=== PATIENT | female | born 1955 | race Caucasian/White ===

== ENCOUNTER → 2018-01-18 | Outpatient (CLI) | payer BC ==
--- NOTE | 2018-01-23 09:41 | MM ---
Reason for exam: screening (asymptomatic). Last mammogram was performed 2 years and 1 month ago. History: Patient is postmenopausal. Physical Findings: A clinical breast exam by your physician is recommended on an annual basis and results should be correlated with mammographic findings. MG Screening Mammo w CAD Bilateral CC and MLO view(s) were taken. Prior study comparison: December 25, 2015, bilateral MG screening mammo w CAD. December 24, 2013, bilateral MG screening mammo w CAD. There are scattered fibroglandular densities. No suspicious abnormality. No significant changes when compared with prior studies. ASSESSMENT: Negative, BI-RAD 1 RECOMMENDATION: Routine screening mammogram of both breasts in 1 year.
== END | disposition home or self-care (01) ==
LOC: RADMAMWWP 09:53
PROVIDERS: ATTEND Obstetrics & Gynecology
DX: Z12.31 Encounter for screening mammogram for malignant neoplasm of breast (principal)
CPT/HCPCS: 77067

== ENCOUNTER → 2018-07-23 | Outpatient (CLI) | payer BC ==
[2018-07-23 17:16] LABS: Immunoglobulin E 45.1 IU/mL (0.00-114.00)
[2018-07-24 12:33] LABS: Immunoglobulin M 73.8 mg/dL (40.0-280.0)
== END ==
LOC: LABWHC1 11:14
PROVIDERS: ATTEND Internal Medicine Critical Care Medicine
DX: J45.909 Unspecified asthma, uncomplicated (principal); J06.9 Acute upper respiratory infection, unspecified; J45.41 Moderate persistent asthma with (acute) exacerbation; J20.9 Acute bronchitis, unspecified
CPT/HCPCS: 36415; 82784; 82785

== ENCOUNTER → 2018-07-26 | Outpatient (CLI) | payer BC ==
[2018-07-26 10:48] LABS: Basophils % (A) 0 %; Eosinophils # (A) 0.1 k/uL (0-0.7); Eosinophils % (A) 1 %; HCT 44.2 % (34.0-46.0); HGB 13.7 gm/dL (11.4-16.0); Lymphocytes # (A) 1.2 k/uL (1.0-4.8); Lymphocytes % (A) 15 %; MCH 27.1 pg (25.0-35.0); MCHC 31.1 g/dL (31.0-37.0); MCV 87.1 fL (80.0-100.0); Mean Platelet Volume 6.3; Monocytes # (A) 0.4 k/uL (0-1.0); Monocytes % (A) 5 %; Neutrophils % (A) 78 %; Platelet Count 235 k/uL (150-450); RBC 5.07 m/uL (3.80-5.40); RDW 13.2 % (11.5-15.5); WBC 7.7 k/uL (3.8-10.6)
[2018-07-26 11:25] LABS: Total Eosinophil Count 54 #EOS/uL (150-300)
== END | disposition home or self-care (01) ==
LOC: LABWHC1 10:18
PROVIDERS: ATTEND Internal Medicine
DX: J45.50 Severe persistent asthma, uncomplicated (principal)
CPT/HCPCS: 36415; 85008; 85025

== ENCOUNTER 2018-07-28 19:04 | Emergency (ER) | payer BC ==
[2018-07-28] MEDS ORDERED: SODIUM CHLORIDE 0.9% 500 ML 500 ML IV ONE (19:30)
--- NOTE | 2018-07-28 19:34 | ED ---
Altered Mental Status HPI <Rex Westfall - Last Filed: 07/28/18 22:20> - General Source: patient Mode of arrival: ambulatory Limitations: no limitations <Sonali Ellsworth - Last Filed: 07/28/18 22:24> - General Chief Complaint: Altered Mental Status Stated Complaint: confused Time Seen by Provider: 07/28/18 19:21 - History of Present Illness Initial Comments: 62-year-old female patient presents to the emergency department today for evaluation of altered mental status. Daughter is with patient and provides most of history. She states that she has been dealing with a respiratory infection for the last few weeks. She did see Dr. Vital and was prescribed Augmentin and a steroid, she completed these symptoms were not improved so she follow-up with her own public health veterinarian Dr. Hart who then started azithromycin and prednisone. She hasn't taken his medications the last couple of days and lung symptoms seems to be improving. Daughter reports that she spoke to her on the phone several times today, states that she seemed to be fine however with the last conversation this evening she was answering questions appropriately and being very quiet. States when she went to check on her she was told her pajamas which is unusual. States that she was confused, unable to complete sentences, and just wasn't acting herself. Patient states that she has been having headaches since starting the breathing treatments. States that she is having sharp pain behind the right ear. States that she has had "foggy" vision today. She denies any current chest pain, abdominal pain, nausea, or vomiting. Has had normal bowel movements. She denies any numbness or tingling to the extremities. Denies any weakness. Patient denies any recent rash, shortness breath, diarrhea, constipation, back pain, dizziness, hematuria, dysuria, urinary urgency, urinary frequency, headache, or any other complaints. (Sonali Ellsworth) - Related Data Home Medications Medication Instructions Recorded Confirmed Celecoxib [CeleBREX] 200 mg PO DAILY 05/11/16 05/11/16 Cholecalciferol [Vitamin D3] 1,000 unit PO DAILY 05/11/16 05/11/16 Famotidine [Pepcid AC] 10 mg PO BID 05/11/16 05/11/16 Fluticasone Nasal [place] [Flonase 1 spray EA NOSTRIL BID PRN 05/11/16 05/11/16 Nasal [place]] Montelukast [Singulair] 10 mg PO HS 05/11/16 05/11/16 Multivitamins, Thera [Multivitamin] 1 tab PO DAILY 05/11/16 05/11/16 Olmesartan Medoxomil [Benicar] 40 mg PO HS 05/11/16 05/11/16 Vitamin B Complex 1 cap PO DAILY 05/11/16 05/11/16 Allergies Allergy/AdvReac Type Severity Reaction Status Date / Time levofloxacin [From Levaquin] Allergy Swelling Verified 05/11/16 16:16 Review of Systems ROS Other: All systems not noted in ROS Statement are negative. <Rex Westfall - Last Filed: 07/28/18 22:20> ROS Other: All systems not noted in ROS Statement are negative. <Sonali Ellsworth - Last Filed: 07/28/18 22:24> ROS Statement: Those systems with pertinent positive or pertinent negative responses have been documented in the HPI. Past Medical History Past Medical History: Asthma, Hypertension History of Any Multi-Drug Resistant Organisms: None Reported Past Surgical History: Tubal Ligation Additional Past Surgical History / Comment(s): eye sx Past Psychological History: No Psychological Hx Reported Smoking Status: Former smoker Past Alcohol Use History: Occasional Past Drug Use History: None Reported <Sonali Ellsworth - Last Filed: 07/28/18 22:24> General Exam Limitations: no limitations General appearance: alert, in no apparent distress, other (Physical well- developed, well-nourished adult female patient in no acute distress. Vital signs upon presentation are temperature 98.5F, pulse 84, respirations 18, blood pressure 141/76, pulse ox 96% on room air.) Eye exam: Present: normal appearance, PERRL, EOMI. Absent: scleral icterus, conjunctival injection, periorbital swelling ENT exam: Present: normal exam, normal oropharynx, mucous membranes moist Respiratory exam: Present: normal lung sounds bilaterally. Absent: respiratory distress, wheezes, rales, rhonchi, stridor Cardiovascular Exam: Present: regular rate, normal rhythm, normal heart sounds. Absent: systolic murmur, diastolic murmur, rubs, gallop, clicks GI/Abdominal exam: Present: soft, normal bowel sounds. Absent: distended, tenderness, guarding, rebound, rigid Neurological exam: Present: alert, oriented X3, CN II-XII intact Expanded Speech: Present: fluid speech Cranial nerves: EOM's Intact: Normal, Tongue Deviation: Normal, Nystagmus: Normal, Facial Palsy with Forehead Movement: Normal Motor strength exam: RUE: 5, LUE: 5, RLE: 5, LLE: 5 Eye Response: (4) open spontaneously Motor Response: (6) obeys commands Verbal Response: (5) oriented [place] Total: 15 Psychiatric exam: Present: normal affect, normal mood Skin exam: Present: warm, dry, intact, normal color. Absent: rash <Sonali Ellsworth - Last Filed: 07/28/18 22:24> Vital Signs 07/28/18 07/28/18 07/28/18 19:07 19:20 19:40 Temperature 98.5 F Pulse Rate 84 80 84 Respiratory 18 18 16 Rate Blood Pressure 141/76 145/88 134/86 O2 Sat by Pulse 96 93 L 95 Oximetry 07/28/18 07/28/18 20:00 20:30 Temperature Pulse Rate 81 76 Respiratory 13 16 Rate Blood Pressure 134/86 132/83 O2 Sat by Pulse 95 94 L Oximetry Medical Decision Making - Lab Data Result diagrams: 07/28/18 20:03 07/28/18 20:03 <Rex Westfall - Last Filed: 07/28/18 22:20> - Lab Data Result diagrams: 07/28/18 20:03 07/28/18 20:03 - EKG Data -: EKG Interpreted by [facility] - Radiology Data Radiology results: report reviewed, image reviewed <Sonali Ellsworth - Last Filed: 07/28/18 22:24> - Medical Decision Making 62-year-old female presenting with generalized weakness and confusion which began with waking this morning. Patient has nonfocal exam. She has fluent speech, NIH is 0. She has intermittent confusion and amnesia. This is an acute change for this patient, head CT obtained, negative for intracranial hemorrhage. Laboratory studies include CBC, CMP are unremarkable. Urinalysis is pending. Patient will be transferred for neurology evaluation. (Rex Westfall) 62-year-old female patient presented to the emergency department today with complaints of generalized weakness and speech difficulty which began earlier today. Neurologic exam is unremarkable no focal deficits. Currently patient has fluent speech and an NIH of 0. CT was negative for any acute abnormalities. Labs reviewed and are unremarkable. Upon reevaluation patient remains symptom-free at this time. Patient does require neurologic evaluation, we currently do not have neurology so she will be transferred. Patient family is requesting [facility]. (Sonali Ellsworth) - Lab Data Lab Results 07/28/18 07/28/18 07/28/18 Range/Units 20:01 20:03 20:03 WBC 5.5 (3.8-10.6) k/uL RBC 5.05 (3.80-5.40) m/uL Hgb 13.8 (11.4-16.0) gm/dL Hct 43.9 (34.0-46.0) % MCV 86.9 (80.0-100.0) fL MCH 27.4 (25.0-35.0) pg MCHC 31.5 (31.0-37.0) g/dL RDW 13.7 (11.5-15.5) % Plt Count 252 (150-450) k/uL Neutrophils % 61 % Lymphocytes % 28 % Monocytes % 9 % Eosinophils % 1 % Basophils % 0 % Neutrophils # 3.3 (1.3-7.7) k/uL Lymphocytes # 1.5 (1.0-4.8) k/uL Monocytes # 0.5 (0-1.0) k/uL Eosinophils # 0.0 (0-0.7) k/uL Basophils # 0.0 (0-0.2) k/uL PT (9.0-12.0) sec INR (<1.2) APTT (22.0-30.0) sec Sodium 137 (137-145) mmol/L Potassium 5.0 (3.5-5.1) mmol/L Chloride 101 (98-107) mmol/L Carbon Dioxide 27 (22-30) mmol/L Anion Gap 9 mmol/L BUN 18 H (7-17) mg/dL Creatinine 0.66 (0.52-1.04) mg/dL Est GFR (CKD-EPI)AfAm >90 (>60 ml/min/1.73 sqM) Est GFR (CKD-EPI)NonAf >90 (>60 ml/min/1.73 sqM) Glucose 99 (74-99) mg/dL POC Glucose (mg/dL) 100 H (75-99) mg/dL POC Glu [employer] Pilar Estrella Calcium 9.0 (8.4-10.2) mg/dL Total Bilirubin 0.7 (0.2-1.3) mg/dL AST 27 (14-36) U/L ALT 46 (9-52) U/L Alkaline Phosphatase 63 (38-126) U/L Troponin I (0.000-0.034) ng/mL Total Protein 7.3 (6.3-8.2) g/dL Albumin 4.2 (3.5-5.0) g/dL 07/28/18 07/28/18 Range/Units 20:03 20:03 WBC (3.8-10.6) k/uL RBC (3.80-5.40) m/uL Hgb (11.4-16.0) gm/dL Hct (34.0-46.0) % MCV (80.0-100.0) fL MCH (25.0-35.0) pg MCHC (31.0-37.0) g/dL RDW (11.5-15.5) % Plt Count (150-450) k/uL Neutrophils % % Lymphocytes % % Monocytes % % Eosinophils % % Basophils % % Neutrophils # (1.3-7.7) k/uL Lymphocytes # (1.0-4.8) k/uL Monocytes # (0-1.0) k/uL Eosinophils # (0-0.7) k/uL Basophils # (0-0.2) k/uL PT 10.2 (9.0-12.0) sec INR 0.9 (<1.2) APTT 23.3 (22.0-30.0) sec Sodium (137-145) mmol/L Potassium (3.5-5.1) mmol/L Chloride (98-107) mmol/L Carbon Dioxide (22-30) mmol/L Anion Gap mmol/L BUN (7-17) mg/dL Creatinine (0.52-1.04) mg/dL Est GFR (CKD-EPI)AfAm (>60 ml/min/1.73 sqM) Est GFR (CKD-EPI)NonAf (>60 ml/min/1.73 sqM) Glucose (74-99) mg/dL POC Glucose (mg/dL) (75-99) mg/dL POC Glu [employer] T[employer] ID Calcium (8.4-10.2) mg/dL Total Bilirubin (0.2-1.3) mg/dL AST (14-36) U/L ALT (9-52) U/L Alkaline Phosphatase (38-126) U/L Troponin I <0.012 (0.000-0.034) ng/mL Total Protein (6.3-8.2) g/dL Albumin (3.5-5.0) g/dL - EKG Data EKG Comments: EKG obtained in 1953 shows normal sinus rhythm with an incomplete right bundle branch block. Ventricular rate is 83, SC interval 136, QRS duration 98, QT 362 , QTc 425. No evidence of ST elevation or depression. (Sonali Ellsworth) - Radiology Data Two-view x-ray of the chest is obtained. Report was reviewed in its entirety. Impression by Dr. Recinos shows no acute cardio pulmonary process per CT brain without contrast was obtained. Report was reviewed in its entirety. Impression by Dr. Recinos shows no acute intracranial hemorrhage or midline shift. No significant interval change. (Sonali Ellsworth) Disposition <Rex Westfall - Last Filed: 07/28/18 22:20> - Out of Hospital Transfer - Req. Specs Out of Hospital Transfer - Requested Specifics: Other Emergency Center ([facility]) <Sonali Ellsworth - Last Filed: 07/28/18 22:24> Clinical Impression: TIA (transient ischemic attack) Disposition: OTHER INSTITUTION NOT DEFINED Condition: Serious Referrals: Jennifer Richardson, [Primary Care Provider] - 1-2 days
[2018-07-28 20:05] LABS: Glucose,Whole Blood 100 mg/dL (75-99)
[2018-07-28 20:18] LABS: Basophils % (A) 0 %; Eosinophils % (A) 1 %; HCT 43.9 % (34.0-46.0); HGB 13.8 gm/dL (11.4-16.0); Lymphocytes # (A) 1.5 k/uL (1.0-4.8); Lymphocytes % (A) 28 %; MCH 27.4 pg (25.0-35.0); MCHC 31.5 g/dL (31.0-37.0); MCV 86.9 fL (80.0-100.0); Mean Platelet Volume 6.7; Monocytes # (A) 0.5 k/uL (0-1.0); Monocytes % (A) 9 %; Neutrophils # (A) 3.3 k/uL (1.3-7.7); Neutrophils % (A) 61 %; Platelet Count 252 k/uL (150-450); RBC 5.05 m/uL (3.80-5.40); RDW 13.7 % (11.5-15.5); WBC 5.5 k/uL (3.8-10.6)
[2018-07-28 20:27] LABS: ALT 46 U/L (9-52); AST 27 U/L (14-36); Albumin 4.2 g/dL (3.5-5.0); Alkaline Phosphatase 63 U/L (38-126); Anion Gap 9 mmol/L; Blood Urea Nitrogen 18 mg/dL (7-17); Carbon Dioxide 27 mmol/L (22-30); Chloride 101 mmol/L (98-107); Glucose 99 mg/dL (74-99); Sodium 137 mmol/L (137-145); Total Bilirubin 0.7 mg/dL (0.2-1.3); Total Protein 7.3 g/dL (6.3-8.2)
[2018-07-28 20:29] LABS: INR 0.9 (<1.2); Partial Thromboplastin Time 23.3 sec (22.0-30.0); Prothrombin Time 10.2 sec (9.0-12.0)
--- NOTE | 2018-07-28 20:40 | XR ---
EXAMINATION TYPE: XR chest 2V DATE OF EXAM: 07/28/2018 COMPARISON: CT thorax 03/30/2017 HISTORY: Altered mental status, confusion TECHNIQUE: Frontal and lateral views of the chest are obtained. FINDINGS: There is no focal air space opacity, pleural effusion, or pneumothorax seen. The cardiac silhouette size is within normal limits. The osseous structures are intact. IMPRESSION: No acute cardiopulmonary process.
--- NOTE | 2018-07-28 20:43 | CT ---
EXAMINATION TYPE: CT brain wo con DATE OF EXAM: 07/28/2018 HISTORY: Altered mental status. CT DLP: 1060.4 mGycm. Automated Exposure Control for Dose Reduction was Utilized. TECHNIQUE: CT scan of the head is performed without contrast. COMPARISON: 05/11/2016 FINDINGS: There is no acute intracranial hemorrhage or midline shift identified. There is diffuse v entricular and sulcal prominence consistent with diffuse age-related cerebral atrophy. The globes a re intact. Minimal mucosal thickening of left maxillary sinus. IMPRESSION: No acute intracranial hemorrhage or midline shift. No significant interval change.
[2018-07-28] MEDS ORDERED: ACETAMINOPHEN TAB 325 MG TAB PO STA (20:52)
[2018-07-28] MEDS ORDERED: ASPIRIN 325 MG TAB PO STA (22:03)
[2018-07-28 22:44] VITALS: BP 131/78; PULSE 74; RESP 16; TEMP 97.4
[2018-07-28 23:10] LABS: Appearance,Urine Cloudy (Clear); Bacteria,Urine Rare /hpf; Bilirubin,Urine Negative (Negative); Blood,Urine Negative (Negative); Color,Urine Yellow; Glucose,Urine (UA) Negative (Negative); Hyaline Casts,Urine 3 /lpf (0-2); Ketones,Urine Trace (Negative); Leukocyte Esterase,Urine Large (Negative); Mucus,Urine Few /hpf; Nitrite,Urine Negative (Negative); Protein,Urine Negative (Negative); RBC,Urine 13 /hpf (0-5); Specific Gravity,Urine 1.014 (1.001-1.035); Squamous Epithelial Cell,Urine 7 /hpf (0-4); Urobilinogen,Urine <2.0 mg/dL (<2.0); WBC,Urine 72 /hpf (0-5)
[2018-07-28 23:16] LABS: Amphetamine Screen,Urine Not Detected (NotDetected); Barbiturate Screen,Urine Not Detected (NotDetected); Benzodiazepines Screen,Urine Not Detected (NotDetected); Cocaine Screen,Urine Not Detected (NotDetected); Methadone Screen, Urine Not Detected (NotDetected); Opiate Screen,Urine Not Detected (NotDetected); Oxycodone Screen, Urine Not Detected (NotDetected); Phencyclidine Screen,Urine Not Detected (NotDetected); Tricyclic Antidepressant,Urine Not Detected (NotDetected); Urn Cannabinoid Scrn Not Detected (NotDetected)
== END 2018-07-28 22:50 | disposition other institution (70) ==
LOC: EC 19:04
DX: G45.9 Transient cerebral ischemic attack, unspecified (principal); J45.909 Unspecified asthma, uncomplicated; I10 Essential (primary) hypertension; Z98.890 Other specified postprocedural states; Z87.891 Personal history of nicotine dependence; Z79.1 Long term (current) use of non-steroidal anti-inflammatories (NSAID); Z79.899 Other long term (current) drug therapy; Z88.1 Allergy status to other antibiotic agents
CPT/HCPCS: 36415; 70450; 71046; 80053; 80306; 81001; 84484; 85025; 85610; 85730; 87077; 87086; 87186; 93005; 96360; 99285

== ENCOUNTER → 2024-08-20 | Outpatient (CLI) | payer MEDICARE ==
--- NOTE | 2024-08-20 10:28 | MM ---
Reason for Exam: Screening (asymptomatic). Last mammogram was performed 1 year(s) and 2 month(s) ago. Patient History: Menarche at age 11. First Full-Term at age 21. Postmenopausal. Risk Values: Lluvia 5 year model risk: 1.5%. NCI Lifetime model risk: 4.5%. Prior Study Comparison: 01/18/2018 Bilateral Screening Mammogram, [facility]. 10/08/2021 Bilateral Screening Mammogram, [facility] . 06/13/2023 Bilateral Screening Mammogram, [facility]. Tissue Density: There are scattered areas of fibroglandular density. Findings: Analyzed By CAD. Benign-appearing bilateral axillary lymph nodes are redemonstrated. There is no suspicious new group of microcalcifications or new suspicious mass in either breast. Overall Assessment: Negative, BI-RAD 1 Management: Screening Mammogram of both breasts in 1 year. . Patient should continue monthly self-breast exams. A clinical breast exam by your physician is recommended on an annual basis. This exam should not preclude additional follow-up of suspicious palpable abnormalities. Note on Lluvia scores and lifetime risk: 1. A Lluvia score greater than 3% is considered moderate risk. If this is the case, consider specialist referral to assess eligibility for a risk reducing agent. 2. If overall lifetime risk for the development of breast cancer is 20% or higher, the patient may qualify for future screening with alternating mammogram and breast MRI. [facility], , 08/20/2024 10:23 AM. Electronically signed and approved by: Steve Pruitt M.D.
--- NOTE | 2024-08-20 10:41 | BD ---
EXAMINATION TYPE: Axial Bone Density DATE OF EXAM: 08/20/2024 CLINICAL HISTORY: 68 years old Female. ICD-10 CODE: Z78.0 POST MENOPAUSAL , Additional History: Height: 61 Weight: 168 FRAX RISK QUESTIONS: Secondary Osteoporosis: RISK FACTORS HISTORY OF: Surgery to Spine/Hip(right/left)/Wrist (right/left): lumbar surgery When: 2013 MEDICATIONS: EXAM MEASUREMENTS: Bone mineral densitometry was performed using the ChromaDex System. Bone mineral density about the R hip (g/cm2): 0.846 Bone mineral density about the L hip (g/cm2): 0.893 T Score values are as follows: -----R Neck: -1.3 -----L Neck: -1.5 -----R Total: -1.3 -----L Total: -0.9 Z Score values are as follows: -----R Neck: 0.2 -----L Neck: 0.0 -----R Total: 0.0 -----L Total: 0.3 Bone mineral density has: Decreased -7.2% since study of: 12-25-15 FRAX%s: The graph provided illustrates a 9.6% chance for a major osteoporotic fx and a 1.4% chance fo r the hips probability for fx in 10 years time. IMPRESSION: Osteopenia (T Score between -2.5 and -1). There is slightly increased risk of fracture and the patient may be considered for treatment. Re-Screen 2-5 years. NOTE: T-SCORE=SD OF THE YOUNG ADULT MEAN. [facility], , 08/20/2024 10:38 AM
== END | disposition home or self-care (01) ==
LOC: RADMAMWWP 09:49
PROVIDERS: ATTEND Family Medicine
DX: Z12.31 Encounter for screening mammogram for malignant neoplasm of breast (principal); R92.323 Mammographic fibroglandular density, bilateral breasts; Z78.0 Asymptomatic menopausal state
CPT/HCPCS: 77063; 77067; 77080